=== PATIENT | female | born 1980 | race Caucasian/White ===

== ENCOUNTER 2020-06-13 11:36 | Outpatient (REF) | payer OTHER, SELFPAY ==
[2020-06-14 09:49] LABS: CT PCR NOT DETECTED (Not Detect.); NG PCR NOT DETECTED (Not Detect.)
== END 2020-06-13 11:37 | disposition home or self-care (01) ==
LOC: HO.LNP 11:36
PROVIDERS: PCP Physician Assistant; Referring Provider Physician Assistant; Visit Provider Advanced Practice Midwife
DX: Z01.419 Encounter for gynecological examination (general) (routine) without abnormal findings (principal); Z11.8 Encounter for screening for other infectious and parasitic diseases; Z11.3 Encounter for screening for infections with a predominantly sexual mode of transmission; Z87.891 Personal history of nicotine dependence
CPT/HCPCS: 87491; 87591

== ENCOUNTER 2020-10-04 12:19 | Outpatient (REF) | payer OTHER, SELFPAY ==
--- NOTE | ~2020-10-04 | MM_ITS ---
EXAMINATION: MM DIAGNOSTIC DIGITAL BREAST TOMOSYNTHESIS, BILATERAL CLINICAL INFORMATION: Follow up left breast calcifications COMPARISON: Mammography: 10/03/2019 and studies dating back to 09/05/2018 TECHNIQUE: Digital breast tomosynthesis is performed in both the craniocaudal and mediolateral oblique views along with computer-aided detection (CAD). Synthesized 2D images are generated from the tomosynthesis. Additional spot magnification views of the left breast in craniocaudal and 90 degree mediolateral views performed. FINDINGS: The breasts are heterogeneously dense, which may obscure small masses (ACR BI-RADS breast composition Category c). About the inferior lateral aspect of the right breast there appears to be a circumscribed approximately 1.4 x 1.4 x 1.1 cm density lying approximately 6 cm from the nipple. Recommend ultrasound of this. There appears to be stability of loosely scattered and grouped calcifications about the medial aspect of the left breast. Results are provided to the patient at time of visit by the technologist. MM/MM tomosynthesis diagnostic BI IMPRESSION: Stable appearance of left breast calcifications. Right breast density for which further evaluation with ultrasound is recommended. Patient could not stay for the ultrasound study today and has made an appointment for this in the near future. ASSESSMENT: BI-RADS 0: Incomplete - Need Additional Imaging Evaluation RECOMMENDATION: Right breast ultrasound.
== END 2020-10-04 12:20 | disposition home or self-care (01) ==
LOC: HO.MAMMO 12:19
PROVIDERS: PCP Physician Assistant; Visit Provider Physician Assistant
DX: R92.1 Mammographic calcification found on diagnostic imaging of breast (principal)
CPT/HCPCS: 77062; 77066

== ENCOUNTER 2020-10-14 12:46 | Outpatient (REF) | payer OTHER, SELFPAY ==
--- NOTE | ~2020-10-14 | US_ITS ---
EXAMINATION: US DIAGNOSTIC ULTRASOUND BREAST, RIGHT CLINICAL INFORMATION: Nodular asymmetry lower right breast on recent mammography. COMPARISON: Mammography 10/04/2020, 10/03/2019, 09/05/2018 (baseline). TECHNIQUE: Ultrasound right breast is targeted to the lower and lower outer quadrant. Grayscale imaging and color Doppler are performed without and with harmonics. FINDINGS: There is a benign-appearing complicated cyst 6:00 position 2 cm from nipple measuring 1.9 x 1.4 x 0.5 cm. There are multiple fine internal avascular septations. No solid mass or peripheral or internal color flow. There is increased through-transmission of sound on real-time imaging. There is no solid mass or architectural abnormality. Results are discussed with the patient at time of visit. The complicated cyst corresponds to the finding on recent mammography. It appears probably benign with no associated peripheral or internal color flow. Given the number of septations, the cyst will be reassessed again with ultrasound in 6 months to confirm stability. US/US breast RT limited IMPRESSION: Right breast: Benign-appearing complicated cyst corresponding to finding on recent mammography. ASSESSMENT: BI-RADS 3: Probably Benign RECOMMENDATION: Targeted diagnostic right breast ultrasound in 6 months. This patient's information was entered into a reminder system with a target due date for their next mammogram.
== END 2020-10-14 12:47 | disposition home or self-care (01) ==
LOC: HO.MAMMO 12:46
PROVIDERS: Visit Provider Physician Assistant
DX: N64.89 Other specified disorders of breast (principal)
CPT/HCPCS: 76642

== ENCOUNTER → 2021-02-19 11:30 | Outpatient (BNVA) | payer OTHER, SELFPAY | PROVIDERS: Visit Provider Advanced Practice Midwife ==

== ENCOUNTER → 2021-03-21 15:24 | Outpatient (BNVA) | payer OTHER, SELFPAY | PROVIDERS: Visit Provider Advanced Practice Midwife ==

== ENCOUNTER → 2021-04-08 10:15 | Outpatient (BNVA) | payer OTHER, SELFPAY | PROVIDERS: Visit Provider Advanced Practice Midwife | DX: N92.1 Excessive and frequent menstruation with irregular cycle (principal) | CPT/HCPCS: 81025; 99211 ==

== ENCOUNTER 2021-05-12 12:53 | Outpatient (REF) | payer OTHER, MEDICAID, SELFPAY ==
--- NOTE | ~2021-05-12 | MM_ITS ---
EXAMINATION: MM DIAGNOSTIC DIGITAL BREAST TOMOSYNTHESIS, RIGHT US DIAGNOSTIC ULTRASOUND BREAST, RIGHT CLINICAL INFORMATION: Short interval six-month follow-up probable benign complicated cyst 6:00 right breast. TC score 12%. COMPARISON: Mammography: 10/04/2020 (BI-RADS 0), 10/03/2019, 09/05/2018; targeted right breast ultrasound 10/14/2020. TECHNIQUE: Right breast ultrasound is initially performed targeted to the 4:00 through 10:00 position. Grayscale imaging and color Doppler are performed without and with harmonics. Subsequently, right digital breast tomosynthesis is performed in both the craniocaudal and mediolateral oblique views along with computer-aided detection (CAD). Synthesized 2D images are generated from the tomosynthesis. FINDINGS: Ultrasound, right: The previously noted complicated cyst 6:00 position 2 cm from nipple is no longer demonstrated. Extended scanning failed to reveal finding. There is no cystic or solid mass or architectural abnormality or focal duct ectasia. Digital breast tomosynthesis, right: The breasts are heterogeneously dense, which may obscure small masses (ACR BI-RADS breast composition Category c). Breast tissue composition borders on average fibroglandular. The asymmetric density lower right breast on MLO view noted previously is no longer demonstrated. This is consistent with the absence of the finding on ultrasound. Breast parenchymal pattern is otherwise unremarkable. There is no architectural abnormality or abnormal calcifications. The skin contours are smooth. Results are discussed with the patient at time of visit. MM/MM tomosynthesis diagnostic RT IMPRESSION: Interval resolution complicated cyst lower right breast since prior imaging. ASSESSMENT: BI-RADS 2: Benign RECOMMENDATION: Routine annual mammography screening. This patient's information was entered into a reminder system with a target due date for their next mammogram.
== END 2021-05-12 12:54 | disposition home or self-care (01) ==
LOC: HO.MAMMO 12:53
PROVIDERS: Visit Provider Physician Assistant
DX: R92.2 Inconclusive mammogram (principal)
CPT/HCPCS: 76642; 77061; 77065

== ENCOUNTER 2021-05-26 13:59 | Outpatient (REF) | payer OTHER, MEDICAID, SELFPAY ==
--- NOTE | ~2021-05-26 | XR_ITS ---
EXAMINATION: XR LUMBOSACRAL SPINE CLINICAL INFORMATION: Lumbar radiculopathy. COMPARISON: None. TECHNIQUE: 3 views of the lumbosacral spine. FINDINGS: Grade 1 anterolisthesis of L5 on S1 with chronic bilateral spondylolysis. No loss of vertebral body height. Loss of intervertebral disc height with anterior endplate osteophytes at L1-L2 and L5-S1. No lytic or blastic osseous lesion. No abnormal soft tissue calcification. XR/XR lumbar spine 2-3V IMPRESSION: Grade 1 anterolisthesis of L5 on S1 with chronic bilateral spondylolysis. Degenerative disc disease at L1-L2 and L5-S1.
== END 2021-05-26 14:00 | disposition home or self-care (01) ==
LOC: HO.XRAY 13:59
PROVIDERS: PCP Physician Assistant; Visit Provider Physician Assistant
DX: M54.16 Radiculopathy, lumbar region (principal)
CPT/HCPCS: 72100

== ENCOUNTER 2021-10-06 09:47 | Outpatient (REF) | payer OTHER, MEDICAID, SELFPAY ==
--- NOTE | ~2021-10-06 | MM_ITS ---
EXAMINATION: MM SCREENING DIGITAL BREAST TOMOSYNTHESIS, BILATERAL CLINICAL INFORMATION: Screening. Asymptomatic. The lifetime risk of breast cancer based on the Tyrer-Cuzick Model is 12%. COMPARISON: Mammography: 05/12/2021, 10/04/2020, 10/03/2019 TECHNIQUE: Digital breast tomosynthesis is performed in both the craniocaudal and mediolateral oblique views along with computer-aided detection (CAD). Synthesized 2D images are generated from the tomosynthesis. FINDINGS: The breasts are heterogeneously dense, which may obscure small masses (ACR BI-RADS breast composition Category c). Parenchymal pattern is similar to prior exams. There is no interval mass or architectural abnormality or developing density. There are scattered punctate calcifications again seen with some greater number region oblique central lower left breast. Heavily calcified left axillary node is again seen likely related to old granulomatous changes. Skin contours are smooth. MM/MM tomosynthesis screening BI IMPRESSION: No significant changes from prior studies. ASSESSMENT: BI-RADS 2: Benign RECOMMENDATION: Routine annual mammography screening. This patient's information was entered into a reminder system with a target due date for their next mammogram.
== END 2021-10-06 09:48 | disposition home or self-care (01) ==
LOC: HO.MAMMO 09:47
PROVIDERS: PCP Physician Assistant; Visit Provider Physician Assistant
DX: Z12.31 Encounter for screening mammogram for malignant neoplasm of breast (principal)
CPT/HCPCS: 77063; 77067

== ENCOUNTER 2022-10-12 09:32 | Outpatient (REF) | payer OTHER, SELFPAY ==
--- NOTE | ~2022-10-12 | MM_ITS ---
EXAMINATION: MM SCREENING DIGITAL BREAST TOMOSYNTHESIS, BILATERAL CLINICAL INFORMATION: Screening. Asymptomatic. The lifetime risk of breast cancer based on the Tyrer-Cuzick Model is 12%. COMPARISON: Mammography: 10/06/2021, 05/12/2021, 10/04/2020, 10/03/2019, 04/03/2019, 04/19/2019, 09/05/2018 (baseline). TECHNIQUE: Digital breast tomosynthesis is performed in both the craniocaudal and mediolateral oblique views along with computer-aided detection (CAD). Synthesized 2D images are generated from the tomosynthesis. FINDINGS: The breasts are heterogeneously dense, which may obscure small masses (ACR BI-RADS breast composition Category c). Parenchymal pattern is similar to prior studies and there is no significant mass or developing density or architectural abnormality. Again, there are regional calcifications central inner left breast and scattered on the right. There is a heavily calcified node again seen left axilla likely related to old granulomatous changes. No interval axillary adenopathy. The skin contours are smooth. No significant changes. MM/MM tomosynthesis screening BI IMPRESSION: No mammographic evidence of malignancy. ASSESSMENT: BI-RADS 2: Benign RECOMMENDATION: Routine annual mammography screening. This patient's information was entered into a reminder system with a target due date for their next mammogram.
== END 2022-10-12 09:33 | disposition home or self-care (01) ==
LOC: HO.MAMMO 09:32
PROVIDERS: PCP Physician Assistant; Visit Provider Physician Assistant
DX: Z12.31 Encounter for screening mammogram for malignant neoplasm of breast (principal)
CPT/HCPCS: 77063; 77067

== ENCOUNTER 2022-12-15 10:21 | Outpatient (REF) | payer OTHER, SELFPAY ==
[2022-12-15 11:37] LABS: Hematocrit 43.4 % (37.0-47.0); Hemoglobin 14.6 g/dl (12.0-16.0); Mean Corpuscular HGB Conc 33.6 g/dl (31.0-35.0); Mean Corpuscular Volume 92.1 fL (80.0-98.0); Mean Platelet Volume 10.1 fL (9.4-12.3); Platelet Count 252 X10*3/uL (160-400); Red Blood Count 4.71 X10*6/uL (4.20-5.50); Red Cell Distribution Width 12.6 % (11.0-16.0); White Blood Count 5.1 X10*3/uL (4.8-10.8)
[2022-12-15 12:11] LABS: Alanine Aminotransferase 17 U/L (0-31); Albumin Level 4.5 g/dL (3.5-5.0); Alkaline Phosphatase 64 U/L (39-117); Anion Gap 12 (12-20); Aspartate Amino Transferase 20 U/L (5-31); Bilirubin Total 0.6 mg/dL (0.0-1.0); Blood Urea Nitrogen 9 mg/dL (9-16); Calcium 9.6 mg/dL (8.4-10.2); Carbon Dioxide 27 mmol/L (22-29); Chloride 107 mmol/L (96-108); Cholesterol 165 mg/dL; Estimated Glomerular Filt Rate > 60; Glucose Fasting 86 mg/dL (60-99); HDL Cholesterol 69 mg/dL; LDL Cholesterol Calculated 89 mg/dl; Potassium 3.8 mmol/L (3.3-5.1); Sodium 142 mmol/L (135-145); TSH reflex Free T4 0.76 uIU/mL (0.32-4.0); Total Protein 7.4 g/dL (6.5-8.0); Triglycerides 36 mg/dL
[2022-12-17 21:43] LABS: Follicle Stimulating Hormone 7.2 mIU/mL
[2022-12-25 20:08] LABS: Estrogen 308.4 pg/mL
== END 2022-12-15 10:22 | disposition home or self-care (01) ==
LOC: HO.LAB 10:21
PROVIDERS: PCP Physician Assistant; Visit Provider Physician Assistant
DX: R45.86 Emotional lability (principal); Z13.29 Encounter for screening for other suspected endocrine disorder; Z13.220 Encounter for screening for lipoid disorders; Z13.1 Encounter for screening for diabetes mellitus
CPT/HCPCS: 36415; 80053; 80061; 82672; 83001; 84443; 85027

== ENCOUNTER 2023-03-04 09:58 | Outpatient (AMB) | payer OTHER, SELFPAY ==
[2023-03-04 10:00] VITALS: BP 122/68; PULSE 72; O2SAT 99; BMI 22.0
--- NOTE | 2023-03-04 10:00 | MHC.PC.OV ---
Vital Signs 03/04/23 10:00 Height 5 ft 7 in Weight 140 lb 4 oz BMI 22.0 BP 122/68 Blood Pressure Location Rt brachial Position Sitting Pulse 72 Pulse Source Pulse Oximeter Pulse Oximetry (%) 99 Intake Visit Reasons: Discuss patient's mental health Intake Note: pt is here for discuss mental health Bridge Expert Required: No Accompanied by: Self / Same As Patient Allergies No Known Allergies Allergy (Verified 03/04/23 10:10) Medication List - Last Reconciled 03/04/23 by Agapito Mar PA-C diazepam 5 mg PO BEDTIME 15 days valacyclovir (Valtrex) 1,000 mg PO BID PRN 7 days Tobacco use date assessed: 03/04/23 Dental Screening Dental Screen Date: 03/04/23 Did you have a dental visit in the last 12 months?: Yes Did you have a dental problem in the last 6 months where you did not have access to dental care?: No Was dental information given to patient?: Patient has dentist HPI Discuss patient's mental health HPI Details Patient is a 42-year-old female here today for follow-up on her mental health. Patient does have a long history of generalized anxiety disorder to which he uses p.r.n. diazepam for high point of anxiety. She reports he has reduced her alcohol intake and feels somewhat better. She continues to be physically active doing yoga. She has realized that she has daily underlying anxiety even without the use alcohol and would like to start treatment. She is speaking with a mental therapist she enjoys. She reports her sister is on Wellbutrin to which she gets good effect from. She would like to try Wellbutrin. 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 1. Little interest or pleasure in doing things: several days 2. Feeling down, depressed, or hopeless: several days 3. Trouble falling or staying asleep, or sleeping too much: more than half the days 4. Feeling tired or having little energy: several days 5. Poor appetite or overeating: not at all 6. Feeling bad about yourself - or that you are a failure or have let yourself or your family down: several days 7. Trouble concentrating on things, such as reading the newspaper or watching television: not at all 8. Moving or speaking so slowly that other people could have noticed. Or the opposite - being so fidgety or restless that you have been moving around a lot more than usual: several days 9. Thoughts that you would be better off or of hurting yourself in some way: not at all Total score: 7 Depression Screening Interpretation: Positive 23537 - PHQ-9 Billing: Yes Source: Developed by Drs. Jhonny Meyer, Eleanor Mcgarry, Pavel Cat and colleagues, with an educational keri from [employer]. Thrive Questionnaire Date Thrive assessed: 03/04/23 I am a: Patient What is your living situation today?: I have a steady place to live Within the past 12 months, did the food you bought not last and you didn't have the money to get more?: Never true Within the past 12 months, did you worry whether your food would run out before you got money to buy more?: Never true Do you have trouble paying for medicines?: No Do you have trouble getting transportation to medical appointments?: No Do you have trouble paying your heating and electricity bill?: No Do you have trouble taking care of your child, family member or friend?: No Do you have trouble with day-to-day activities such as bathing, preparing meals, shopping, managing finances, etc.?: No Are you currently unemployed and looking for a job?: No Are you interested in more education?: No Please select the resources that you would like help with: None Currently or been in a relationship where the following occur: no concerns reported RAYMOND-7 AMB Questionnaire RAYMOND-7 Date RAYMOND - 7 assessed: 03/04/23 Feeling nervous, anxious, or on edge: 2 = More than half the days Not being able to stop or control worryin = More than half the days Worrying too much about different things: 2 = More than half the days Trouble relaxin = Several days Being so restless that it is hard to sit still: 1 = Several days Becoming easily annoyed or irritable: 1 = Several days Feeling afraid as if something awful might happen: 0 = Not at all Total RAYMOND-7 score (0-4 normal; 5-9 mild; 10-14 moderate; 15-21 severe): 9 Source: Developed by Drs. Jhonny Meyer, Eleanor Mcgarry, Pavel Cat and colleagues, with an educational keri from [employer]. RAYMOND-7 Assessment Billing RAYMOND-7 Assessment Tool: RAYMOND-7 Assessment 93142 Review of Systems Const Denies headache(s) Eyes Denies loss of vision ENT Denies vertigo, Denies dizziness, Denies headache(s) and Denies sore throat Card Denies chest pain, Denies leg edema and Denies lightheadedness Resp Denies cough, Denies hemoptysis and Denies wheezing GI Denies abdominal pain, Denies melena, Denies constipation, Denies diarrhea and Denies vomiting Denies urinary frequency, Denies dysuria and Denies urinary urgency Musc Denies arthralgias, Denies joint swelling, Denies numbness and Denies tingling Neuro Denies Abnormal speech present, Denies behavioral changes, Denies vertigo, Denies dizziness, Denies headache(s), Denies loss of vision, Denies memory loss, Denies numbness and Denies tingling Psych Reports anxiety, Denies behavioral changes, Reports depression, Reports irritability, Denies memory loss, Reports mood swings and Denies panic attacks Kwasi/Lymph Denies easy bleeding and Denies easy bruising Aller/Immun Denies wheezing Physical exam (Primary Care) Vital Signs: Last Vital Signs Pulse 72 03/04/23 10:00 BP 122/68 03/04/23 10:00 Pulse Ox 99 03/04/23 10:00 BMI result Body Mass Index 22.0 Tobacco/Smoking Status: Tobacco use Status Tobacco use date assessed 03/04/23 03/04/23 10:05 Patient Tobacco Use Status Former Tobacco user 03/04/23 10:05 e-Cigarette/Vaping Use Never Used 03/04/23 10:05 PHQ-9: PHQ-9 Score PHQ-9: Total score 7 03/04/23 10:09 Depression Screening Interpretation: Positive Thrive Assessment: Date of Thrive Assessment Date Thrive assessed 03/04/23 03/04/23 10:09 Currently or been in a relationship where the following occur: no concerns reported Const General: healthy appearing, no acute distress, alert and awake Nutritional Appearance: well nourished Orientation/consciousness: oriented to person, oriented to place and oriented to time HENMT Ears: TM's normal bilaterally General nose exam: Normal nasal mucous membranes and turbinates present Eyes Conjunctivae: conjunctivae normal Sclerae: sclerae normal Pupils: Equal, round and reactive pupils present Neck Neck: Yes no lymphadenopathy and Yes no JVD Thyroid: Thyroid normal Carotids: no bruits Resp Effort & Inspection: normal respiratory effort and not tachypneic Auscultation: no crackles, no rales, no rhonchi and no wheezes Cardio Rate: regular rate Rhythm: regular rhythm Heart sounds: no murmurs and normal S1 and S2 GI Palpation (GI): Soft to palpation, nontender, no hepatomegaly and no splenomegaly Auscultation: normal bowel sounds Skin General skin exam: no rashes or lesions noted and dry skin Neuro General: oriented to person, oriented to place and oriented to time Cranial nerves: Yes Equal, round and reactive pupils present Speech: No Abnormal speech present Gait exam (Neuro): Normal gait present Motor exam (neuro): no tremor noted Extrem Right upper extremity: full ROM Left upper extremity: full ROM Right lower extremity: full ROM; no edema Left lower extremity: full ROM; no edema Psych Mental Status: mental status grossly normal Speech and movement: Normal speech and movement present Affect: normal affect Attitude: cooperative Thought process: Normal thought process present Assessment and Plan Assessment & Plan (1) MDD (major depressive disorder), recurrent episode, mild: Code(s): F33.0 - Major depressive disorder, recurrent, mild Plan: Patient reports she has been experiencing a bit more depression as of late. She is speaking with a mental therapist whom she enjoys.. Has not drinking and has been feeling more emotional. She is somewhat interested in starting medication. Reports her sister has found benefit from Wellbutrin. She would like to try acupuncture for a few weeks before starting medication. (2) ARYMOND (generalized anxiety disorder): Code(s): F41.1 - Generalized anxiety disorder Plan: Patient's RAYMOND-7 positive for moderate anxiety which has been existing condition for her. She does use diazepam on a very limited basis for high point of anxiety. She reports she has quit drinking and now is seeing clearly . Medications: New bupropion HCl (Wellbutrin SR) 100 mg PO DAILY 30 days 30 tabs 1RF F33.0 - Major depressive disorder, recurrent, mild Refilled diazepam 5 mg PO BEDTIME 15 days 15 tabs 0RF F41.1 - Generalized anxiety disorder Coding Level of Care Code Est Pt Level 3 (44398) Diagnoses MDD (major depressive disorder), recurrent episode, mild F33.0 RAYMOND (generalized anxiety disorder) F41.1 Additional Codes RAYMOND-7 Assessment Billing - RAYMOND-7 Assessment Tool: RAYMOND-7 Assessment [id number] ([id number])
== END 2023-03-04 10:33 | disposition home or self-care (01) ==
PROVIDERS: PCP Physician Assistant; Visit Provider Physician Assistant
DX: F33.0 Major depressive disorder, recurrent, mild (principal); F41.1 Generalized anxiety disorder
CPT/HCPCS: 99213

== ENCOUNTER 2023-05-10 11:18 | Outpatient (AMB) | payer OTHER, SELFPAY ==
--- NOTE | 2023-05-10 11:36 | MHC.PC.OV ---
Vital Signs 05/10/23 11:42 Height 5 ft 7 in Weight 142 lb 8 oz BMI 22.3 BP 114/82 Blood Pressure Location Lt brachial Position Sitting Pulse 90 Pulse Source Pulse Oximeter Pulse Oximetry (%) 99 Oxygen Delivery Method Room Air Intake Visit Reasons: PE Allergies No Known Allergies Allergy (Verified 05/10/23 11:59) Medication List - Last Reconciled 05/10/23 by Agapito Mar PA-C bupropion HCl (Wellbutrin SR) 100 mg PO DAILY 30 days diazepam 5 mg PO BEDTIME 15 days valacyclovir (Valtrex) 1,000 mg PO BID PRN 7 days Tobacco use date assessed: 03/04/23 HPI PE HPI Details Patient is a 42-year-old female here today for routine annual physical.? Patient has a past medical history significant for generalized anxiety disorder. ..Generalized anxiety disorder and MDD:? . Patient has been managing with very limited p.r.n. use of diazepam for severe panic attacks.? Otherwise she has been managing on her own.? She reports she has reduced her alcohol consumption which has helped her anxiety. She is speaking with a mental health therapist which she feels is helpful for mental health. She has not started the Wellbutrin though has it on hand in case she needs it. She has drastically reduced her alcohol consumption. Vaccines:? Up-to-date with tetanus, Considering COVID Vaccine. 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 .. 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 1. Little interest or pleasure in doing things: not at all 2. Feeling down, depressed, or hopeless: not at all 3. Trouble falling or staying asleep, or sleeping too much: not at all 4. Feeling tired or having little energy: not at all 5. Poor appetite or overeating: not at all 6. Feeling bad about yourself - or that you are a failure or have let yourself or your family down: not at all 7. Trouble concentrating on things, such as reading the newspaper or watching television: not at all 8. Moving or speaking so slowly that other people could have noticed. Or the opposite - being so fidgety or restless that you have been moving around a lot more than usual: not at all 9. Thoughts that you would be better off or of hurting yourself in some way: not at all Total score: 0 Depression Screening Interpretation: Negative Depression Screening Done: Yes 17336 - PHQ-9 Billing: Yes Source: Developed by Drs. Jhonny Meyer, Eleanor Mcgarry, Pavel Cat and colleagues, with an educational keri from [employer]. Thrive Questionnaire Date Thrive assessed: 03/04/23 AUDIT C Alcohol Use Questionnaire (AUDIT-C) 1. How often do you have a drink containing alcohol?: Monthly or less 2. How many drinks containing alcohol do you have on a typical day when you are drinking?: 1 or 2 3. How often do you have six or more drinks on one occasion?: Never Total Score: 1 RAYMOND-7 AMB Questionnaire RAYMOND-7 Date RAYMOND - 7 assessed: 03/04/23 Source: Developed by Drs. Jhonny Meyer, Eleanor Mcgarry, Pavel Cat and colleagues, with an educational keri from [employer]. Review of Systems Const Denies excessive sweating, Denies fatigue and Denies headache(s) Eyes Denies loss of vision ENT Denies vertigo, Denies dizziness, Denies headache(s) and Denies sore throat Card Denies chest pain, Denies leg edema and Denies lightheadedness Resp Denies cough, Denies hemoptysis and Denies wheezing GI Denies abdominal pain, Denies melena, Denies constipation, Denies diarrhea and Denies vomiting Denies urinary frequency, Denies dysuria and Denies urinary urgency Musc Denies arthralgias, Denies joint swelling, Denies numbness and Denies tingling Skin/Breast Denies rash and Denies skin ulcer Neuro Denies Abnormal speech present, Denies behavioral changes, Denies vertigo, Denies dizziness, Denies headache(s), Denies loss of vision, Denies memory loss, Denies numbness and Denies tingling Psych Denies anxiety, Denies behavioral changes, Denies depression, Denies memory loss and Denies panic attacks Endo Denies excessive sweating, Denies fatigue, Denies flushing, Denies polydipsia and Denies polyuria Kwasi/Lymph Denies easy bleeding and Denies easy bruising Aller/Immun Denies wheezing Physical exam (Primary Care) Vital Signs: Last Vital Signs Pulse 90 05/10/23 11:42 BP 114/82 05/10/23 11:42 Pulse Ox 99 05/10/23 11:42 Oxygen Delivery Method Room Air 05/10/23 11:42 BMI result Body Mass Index 22.3 Tobacco/Smoking Status: Tobacco use Status Tobacco use date assessed 03/04/23 05/10/23 11:36 Patient Tobacco Use Status Former Tobacco user 05/10/23 12:05 e-Cigarette/Vaping Use Never Used 05/10/23 12:05 PHQ-9: PHQ-9 Score PHQ-9: Total score 0 05/10/23 12:00 Depression Screening Interpretation: Negative Thrive Assessment: Date of Thrive Assessment Date Thrive assessed 03/04/23 05/10/23 11:36 Const General: healthy appearing, no acute distress, alert and awake Nutritional Appearance: well nourished Orientation/consciousness: oriented to person, oriented to place and oriented to time HENMT Head: Yes normocephalic Ears: TM's normal bilaterally General nose exam: Normal nasal mucous membranes and turbinates present Face and sinus: No sinus tenderness Mouth: Normal oral and palatal mucosa present and tongue normal Teeth and gingiva: dentition normal and gingiva normal Throat: Yes posterior oropharynx normal, Yes tonsils normal and Yes uvula midline Eyes Conjunctivae: conjunctivae normal Sclerae: sclerae normal Pupils: Equal, round and reactive pupils present EOM: EOMs intact bilaterally Direct Ophthalmoscopy: No no photophobia Neck Neck: Yes no lymphadenopathy and Yes no JVD Thyroid: Thyroid normal Carotids: no bruits Chest Chest palpation & inspection: no tenderness Resp Effort & Inspection: normal respiratory effort and not tachypneic Auscultation: no crackles, no rales, no rhonchi and no wheezes Cardio Jugular venous distension: no JVD Rate: regular rate Rhythm: regular rhythm Heart sounds: no murmurs and normal S1 and S2 Bruits: no carotid bruits Peripheral pulses: Peripheral pulses 2+ throughout GI Inspection: Yes normal to inspection, No abdominal wall ecchymosis and No visible herniation Palpation (GI): Soft to palpation, nontender, no hepatomegaly and no splenomegaly Auscultation: normal bowel sounds General: Yes no CVA tenderness Back/Spine/Pelvis Back: no CVA tenderness and No back tenderness Cervical Spine: cervical ROM normal Thoracic/Lumbar Spine: thoracic and lumbar spine normal to inspection, straight leg raise negative bilaterally, No thoraco-lumbar ROM limited and No lumbar spinal tenderness Skin General skin exam: no rashes or lesions noted and dry skin Lesions: no lesions Rashes: no rashes Wounds: no wounds Neuro General: oriented to person, oriented to place and oriented to time Cranial nerves: Yes Equal, round and reactive pupils present Cognition (Neuro): normal cognition Speech: No Abnormal speech present Gait exam (Neuro): Normal gait present Motor exam (neuro): no tremor noted Extrem Right upper extremity: full ROM Left upper extremity: full ROM Right lower extremity: full ROM; no edema Left lower extremity: full ROM; no edema Psych Appearance: grossly normal Mental Status: mental status grossly normal Speech and movement: Normal speech and movement present Affect: normal affect Attitude: cooperative Thought process: Normal thought process present Assessment and Plan Assessment & Plan (1) Annual physical exam: Code(s): Z00.00 - Encounter for general adult medical examination without abnormal findings (2) Screening for diabetes mellitus (DM): Code(s): Z13.1 - Encounter for screening for diabetes mellitus (3) MDD (major depressive disorder), recurrent episode, mild: Code(s): F33.0 - Major depressive disorder, recurrent, mild Plan: She reports her depression has been much better as of late. Does pick with a mental health therapist which she feels is helpful. Has been trying to make better life choices in reduce her alcohol intake as well. Has Wellbutrin prescribed tear though has not started the medication as she feels she did not need it (4) RAYMOND (generalized anxiety disorder): Code(s): F41.1 - Generalized anxiety disorder Plan: Patient's anxiety again has been much better as of lately. Again speaking with mental health therapy which has been helpful. Orders: Orders Comprehensive [place]. Panel Fast Today Z13.1 - Encounter for screening for diabetes mellitus Medications: Refilled valacyclovir (Valtrex) 1,000 mg PO BID 7 days PRN 14 tabs 0RF outbreak B00.9 - Herpesviral infection, unspecified On Hold bupropion HCl (Wellbutrin SR) Hold Comment: Doctor's Order 100 mg PO DAILY 30 days 30 tabs 3RF F33.0 - Major depressive disorder, recurrent, mild Coding Level of Care Code Est Pt Prev Care 40-64y(51114) Diagnoses Annual physical exam Z00.00 Screening for diabetes mellitus (DM) Z13.1 MDD (major depressive disorder), recurrent episode, mild F33.0 RAYMOND (generalized anxiety disorder) F41.1
[2023-05-10 11:42] VITALS: BP 114/82; PULSE 90; O2SAT 99; BMI 22.3
== END 2023-05-10 12:18 | disposition home or self-care (01) ==
PROVIDERS: PCP Physician Assistant; Visit Provider Physician Assistant
DX: Z00.00 Encounter for general adult medical examination without abnormal findings (principal); Z13.1 Encounter for screening for diabetes mellitus; F33.0 Major depressive disorder, recurrent, mild; F41.1 Generalized anxiety disorder
CPT/HCPCS: 99396

== ENCOUNTER 2023-09-01 08:54 | Outpatient (AMB) | payer OTHER, SELFPAY ==
[2023-09-01 09:17] VITALS: BP 100/72; PULSE 82; O2SAT 99; BMI 22.3
--- NOTE | 2023-09-01 09:17 | A.OFFPC_ITS ---
Vital Signs 3 09/01/23 09:17 Height 5 ft 7 in Weight 142 lb 6 oz BMI 22.3 BP 100/72 Blood Pressure Location Lt brachial Position Sitting Pulse 82 Pulse Source Pulse Oximeter Pulse Oximetry (%) 99 Oxygen Delivery Method Room Air Intake Visit Reasons: Med review Coal Passer Required: No Accompanied by: Self / Same As Patient Allergies No Known Allergies Allergy (Verified 09/01/23 09:27) Medication List - Last Reconciled 09/01/23 by Agapito Mar PA-C bupropion HCl (Wellbutrin SR) 150 mg PO DAILY diazepam 5 mg PO BEDTIME 15 days valacyclovir (Valtrex) 1,000 mg PO BID PRN 7 days Tobacco use date assessed: 09/01/23 Dental Screening Dental Screen Date: 09/01/23 Did you have a dental visit in the last 12 months?: No Did you have a dental problem in the last 6 months where you did not have access to dental care?: No Was dental information given to patient?: Patient has dentist HPI Med review 2 HPI0 Details Patient is a 43-year-old female here today for a follow-up visit.? Patient has a past medical history significant for generalized anxiety disorder. Concern--> reports bilateral shoulder pain over the last several years. No major trauma reported to her shoulders. She would like to have her shoulders checked out. She also has a skin lesion over her left flank that often bothers her and gets caught on clothing. She would like to have this removed. ..Generalized anxiety disorder and MDD:? She has started Wellbutrin 150 mg with significant improvement in her anxiety and depression. She is also drastically reduced her alcohol intake and now going to more fitness classes. She is very pleased with the results of Wellbutrin and would like to stay on this long-term. 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 1. Little interest or pleasure in doing things: not at all 2. Feeling down, depressed, or hopeless: not at all 3. Trouble falling or staying asleep, or sleeping too much: not at all 4. Feeling tired or having little energy: not at all 5. Poor appetite or overeating: not at all 6. Feeling bad about yourself - or that you are a failure or have let yourself or your family down: not at all 7. Trouble concentrating on things, such as reading the newspaper or watching television: not at all 8. Moving or speaking so slowly that other people could have noticed. Or the opposite - being so fidgety or restless that you have been moving around a lot more than usual: not at all 9. Thoughts that you would be better off or of hurting yourself in some way: not at all Total score: 0 Depression Screening Interpretation: Negative Depression Screening Done: Yes 92338 - PHQ-9 Billing: Yes Source: Developed by Drs. Jhonny Meyer, Eleanor Mcgarry, Pavel Cat and colleagues, with an educational keri from [employer]. Thrive Questionnaire Date Thrive assessed: 09/01/23 I am a: Patient What is your living situation today?: I have a steady place to live Within the past 12 months, did the food you bought not last and you didn't have the money to get more?: Never true Within the past 12 months, did you worry whether your food would run out before you got money to buy more?: Never true Do you have trouble paying for medicines?: No Do you have trouble getting transportation to medical appointments?: No Do you have trouble paying your heating and electricity bill?: No Do you have trouble taking care of your child, family member or friend?: No Do you have trouble with day-to-day activities such as bathing, preparing meals, shopping, managing finances, etc.?: No Are you currently unemployed and looking for a job?: No Are you interested in more education?: No Please select the resources that you would like help with: None Currently or been in a relationship where the following occur: no concerns reported THRIVE Score: 0 AUDIT C Alcohol Use Questionnaire (AUDIT-C) 1. How often do you have a drink containing alcohol?: Monthly or less 2. How many drinks containing alcohol do you have on a typical day when you are drinking?: 1 or 2 3. How often do you have six or more drinks on one occasion?: Never Total Score: 1 RAYMOND-7 AMB Questionnaire RAYMOND-7 Date RAYMOND - 7 assessed: 09/01/23 Feeling nervous, anxious, or on edge: 0 = Not at all Not being able to stop or control worryin = Not at all Worrying too much about different things: 0 = Not at all Trouble relaxin = Not at all Being so restless that it is hard to sit still: 0 = Not at all Becoming easily annoyed or irritable: 0 = Not at all Feeling afraid as if something awful might happen: 0 = Not at all Total RAYMOND-7 score (0-4 normal; 5-9 mild; 10-14 moderate; 15-21 severe): 0 Source: Developed by Drs. Jhonny Meyer, Eleanor Mcgarry, Pavel Cat and colleagues, with an educational keri from [employer]. RAYMOND-7 Assessment Billing RAYMOND-7 Assessment Tool: RAYMOND-7 Assessment [id number] Review of Systems Const Denies headache(s) Eyes Denies loss of vision ENT Denies vertigo, Denies dizziness, Denies headache(s) and Denies sore throat Card Denies chest pain, Denies leg edema and Denies lightheadedness Resp Denies cough, Denies hemoptysis and Denies wheezing GI Denies abdominal pain, Denies melena, Denies constipation, Denies diarrhea and Denies vomiting Denies urinary frequency, Denies dysuria and Denies urinary urgency Musc Denies arthralgias, Denies joint swelling, Denies numbness and Denies tingling Neuro Denies Abnormal speech present, Denies behavioral changes, Denies vertigo, Denies dizziness, Denies headache(s), Denies loss of vision, Denies memory loss, Denies numbness and Denies tingling Psych Denies anxiety, Denies behavioral changes, Denies depression, Denies memory loss and Denies panic attacks Kwasi/Lymph Denies easy bleeding and Denies easy bruising Aller/Immun Denies wheezing Physical exam (Primary Care) Vital Signs: Last Vital Signs Pulse 82 09/01/23 09:17 BP 100/72 09/01/23 09:17 Pulse Ox 99 09/01/23 09:17 Oxygen Delivery Method Room Air 09/01/23 09:17 BMI result Body Mass Index 22.3 Tobacco/Smoking Status: Tobacco use Status Tobacco use date assessed 09/01/23 09/01/23 09:23 Patient Tobacco Use Status Former Tobacco user 09/01/23 09:19 e-Cigarette/Vaping Use Never Used 09/01/23 09:19 PHQ-9: PHQ-9 Score PHQ-9: Total score 0 09/01/23 09:23 Depression Screening Interpretation: Negative Thrive Assessment: Date of Thrive Assessment Date Thrive assessed 09/01/23 09/01/23 09:23 Currently or been in a relationship where the following occur: no concerns reported Const General: healthy appearing, no acute distress, alert and awake Nutritional Appearance: well nourished Orientation/consciousness: oriented to person, oriented to place and oriented to time HENMT Ears: TM's normal bilaterally General nose exam: Normal nasal mucous membranes and turbinates present Eyes Conjunctivae: conjunctivae normal Sclerae: sclerae normal Pupils: Equal, round and reactive pupils present Neck Neck: Yes no lymphadenopathy and Yes no JVD Thyroid: Thyroid normal Carotids: no bruits Chest Chest/axillae images: 2 1. RAISED CIRCULAR ROUGH TEXTURED SKIN LESION OVER LEFT FLANK Resp Effort & Inspection: normal respiratory effort and not tachypneic Auscultation: no crackles, no rales, no rhonchi and no wheezes Cardio Rate: regular rate Rhythm: regular rhythm Heart sounds: no murmurs and normal S1 and S2 GI Palpation (GI): Soft to palpation, nontender, no hepatomegaly and no splenomegaly Auscultation: normal bowel sounds Skin General skin exam: no rashes or lesions noted and dry skin Neuro General: oriented to person, oriented to place and oriented to time Cranial nerves: Yes Equal, round and reactive pupils present Speech: No Abnormal speech present Gait exam (Neuro): Normal gait present Motor exam (neuro): no tremor noted Extrem Right upper extremity: full ROM Left upper extremity: full ROM Right lower extremity: full ROM; no edema Left lower extremity: full ROM; no edema Psych Mental Status: mental status grossly normal Speech and movement: Normal speech and movement present Affect: normal affect Attitude: cooperative Thought process: Normal thought process present Assessment and Plan Assessment & Plan (1) RAYMOND (generalized anxiety disorder): Code(s): F41.1 - Generalized anxiety disorder Plan: She reports her anxiety depression has much improved with the addition of Wellbutrin 150 mg. She would like to stay on this dose. She has also drastically reduced her alcohol intake And has joined more fitness classes (2) Tendinopathy of both shoulders: Code(s): M67.911 - Unspecified disorder of synovium and tendon, right shoulder; M67.912 - Unspecified disorder of synovium and tendon, left shoulder Plan: Reports having bilateral shoulder pain over the last several years. She reports the often arm pain after workouts. No major trauma reported to her upper extremities were shoulders.. Has tried anti-inflammatories. She is interested in having her shoulders checked out. Would likely benefit from physical therapy (3) Actinic keratosis: Code(s): L57.0 - Actinic keratosis Plan: Has skin lesion with the appearance of an actinic keratosis. Has had several attempts on removal though skin lesion returns. She would like to see general surgeon for surgical removal of this skin lesion. Orders: Orders 2 XR shoulder LT min 2V Today M67.911 - Unspecified disorder of synovium and tendon, right shoulder, M67.912 - Unspecified disorder of synovium and tendon, left shoulder XR shoulder RT min 2V Today M67.911 - Unspecified disorder of synovium and tendon, right shoulder, M67.912 - Unspecified disorder of synovium and tendon, left shoulder PT Evaluation and Treatment Today M67.911 - Unspecified disorder of synovium and tendon, right shoulder, M67.912 - Unspecified disorder of synovium and tendon, left shoulder Referrals 2 General Surgery Referral L57.0 - Actinic keratosis Coding Level of Care Code Est Pt Level 4 (93418) Diagnoses RAYMOND (generalized anxiety disorder) F41.1 Tendinopathy of both shoulders M67.911; M67.912 Actinic keratosis L57.0 Additional Codes RAYMOND-7 Assessment Billing - RAYMOND-7 Assessment Tool: RAYMOND-7 Assessment 71177 ([id number])
== END 2023-09-01 09:44 | disposition home or self-care (01) ==
PROVIDERS: PCP Physician Assistant; Visit Provider Physician Assistant
DX: M67.911 Unspecified disorder of synovium and tendon, right shoulder (principal); M67.912 Unspecified disorder of synovium and tendon, left shoulder; L57.0 Actinic keratosis; F41.1 Generalized anxiety disorder
CPT/HCPCS: 99214

== ENCOUNTER 2023-09-27 10:22 | Outpatient (REF) | payer OTHER, SELFPAY | END 2023-09-27 10:23 | disposition home or self-care (01) | LOC: HO.LNP 10:22 | PROVIDERS: PCP Physician Assistant; Referring Provider Physician Assistant; Visit Provider Surgery | DX: L98.9 Disorder of the skin and subcutaneous tissue, unspecified (principal) | CPT/HCPCS: 11102; 88304; 88305; 99202 ==

== ENCOUNTER 2023-09-27 10:22 | Outpatient (AMB) | payer OTHER, SELFPAY ==
--- NOTE | 2023-09-27 10:24 | MHC.OFFVIS ---
Intake Vital Signs 09/27/23 10:32 Height 5 ft 7 in Weight 321 lb 13.998 oz BMI 50.4 BP 145/86 H Blood Pressure Location Rt brachial Position Sitting Pulse 83 Intake Visit Reasons: Skin lesion~ Lt flank Intake Note: Patient referred by PCP Agapito Mar for lesion on Lt flank. First noticed 10yrs ago. Patient c/o: irritated with clothing. Denies bleeding, itch. No hx of skin ca. Instructor Of Spanish Required: No Accompanied by: Self / Same As Patient Allergies No Known Allergies Allergy (Verified 09/27/23 10:28) Medication List - Last Reconciled 09/27/23 by Devang Lorenzo MD bupropion HCl (Wellbutrin SR) 150 mg PO DAILY diazepam 5 mg PO BEDTIME 15 days valacyclovir (Valtrex) 1,000 mg PO BID PRN 7 days HPI HPI Comments History of Present Illness Details Patient presents with a recurrent recurrent left flank skin lesion. She originally had this excised by her medical doctor. It was then excised by a asset card clerk. It has recurred. She says it is benign but it has become more symptomatic and she wishes to have it removed. 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 Office Procedures Excision Details: Risks, benefits, alternatives of excision of left recurrent skin lesion 2 x 1 cm was reviewed the patient included but not limited to bleeding, infection, recurrence, numbness, pain, scarring and the patient wished to proceed. All questions answered. After appropriate positioning, patient underwent 1% lidocaine and Betadine prep and uneventful tangential shave biopsy excision of this 2 x 1 cm superficial skin lesion. Specimen sent to pathology. Wound base was cauterized with silver nitrate followed by bacitracin and sterile dressing. Patient tolerated procedure well [id number]/arms/legs 1.1-2cm Procedure code (CPT) selection complete Office Meds lidocaine 1 %-epinephrine 1:100,000 injection solution Performing Provider: Devang Lorenzo MD Performing Location: [facility] [place] General Surgeons Administered by: Devang Lorenzo MD on 09/27/23 11:26 Dose Route Admin Location Dispensed Lot Number Expiration Date [facility] [place] [employer] Sales Representative 10 mL Infiltration 10 mL Assessment & Plan Assessment & Plan (1) Skin lesion: Code(s): L98.9 - Disorder of the skin and subcutaneous tissue, unspecified Plan: Patient has been given local instructions, including avoiding strenuous activities, bacitracin each day, ice periodically, Tylenol p.r.n.. All questions answered. Patient will see me as directed or p.r.n. Orders: Orders AMB Excision Today L98.9 - Disorder of the skin and subcutaneous tissue, unspecified Coding Level of Care Code New Pt Level 5 (39261) Diagnoses Skin lesion L98.9 CPT Codes Trunk/Arms/Legs - CPT: 73111-mefql/arms/legs 1.1-2cm ([id number])
[2023-09-27 10:32] VITALS: BP 145/86; PULSE 83; BMI 50.4
== END 2023-09-27 10:50 | disposition home or self-care (01) ==
PROVIDERS: PCP Physician Assistant; Referring Provider Physician Assistant; Visit Provider Surgery
DX: L98.9 Disorder of the skin and subcutaneous tissue, unspecified (principal)
CPT/HCPCS: 11102; 99204

== ENCOUNTER 2023-10-04 09:18 | Outpatient (AMB) | payer OTHER, SELFPAY ==
[2023-10-04 09:24] VITALS: BP 141/83; PULSE 77; BMI 22.4
--- NOTE | 2023-10-04 09:24 | MHC.OFFVIS ---
Intake Vital Signs 10/04/23 09:24 Height 5 ft 7 in Weight 143 lb BMI 22.4 BP 141/83 H Blood Pressure Location Rt brachial Position Sitting Pulse 77 Intake Visit Reasons: S/p Skin lesion~ Lt flank - in office Intake Note: Patient here s/p exc on Lt flank. Reports incision healing well. Patient c/o:redness. 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 She has no wound issues or complaints. 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 Assessment & Plan Assessment & Plan (1) Skin lesion: Code(s): L98.9 - Disorder of the skin and subcutaneous tissue, unspecified Plan Patient has been given local instructions, and will follow-up p.r.n.. All questions answered. Coding Level of Care Code Global (07898) Diagnoses Skin lesion L98.9
== END 2023-10-04 09:42 | disposition home or self-care (01) ==
PROVIDERS: PCP Physician Assistant; Visit Provider Surgery
DX: L98.9 Disorder of the skin and subcutaneous tissue, unspecified (principal)
CPT/HCPCS: 99212

== ENCOUNTER → 2023-10-04 09:18 | Outpatient (BNVA) | payer OTHER, SELFPAY | PROVIDERS: PCP Physician Assistant; Visit Provider Surgery | DX: Z09 Encounter for follow-up examination after completed treatment for conditions other than malignant neoplasm (principal); Z87.2 Personal history of diseases of the skin and subcutaneous tissue | CPT/HCPCS: 99212 ==

== ENCOUNTER 2023-10-18 09:14 | Outpatient (REF) | payer OTHER, SELFPAY ==
--- NOTE | ~2023-10-18 | MM_ITS ---
EXAMINATION: MM SCREENING DIGITAL BREAST TOMOSYNTHESIS, BILATERAL CLINICAL INFORMATION: Screening. Asymptomatic. COMPARISON: Mammography: 10/12/2022, 10/06/2021, and exams dating back to 2019. TECHNIQUE: Digital breast tomosynthesis is performed in both the craniocaudal and mediolateral oblique views along with computer-aided detection (CAD). Synthesized 2D images are generated from the tomosynthesis. Added left CC view for improved anterior compression. FINDINGS: The breasts are heterogeneously dense, which may obscure small masses (ACR BI-RADS breast composition Category c). Left axillary lymph node again noted to be either pigmented or calcified, likely from tattoos. This is unchanged. Again, there are regional calcifications central inner left breast and scattered on the right. These appear benign and stable. No new or suspicious calcifications. No developing masses, regions of architectural distortion, skin abnormalities, or right axillary abnormalities. Parenchymal pattern is stable from prior exams. MM/MM tomosynthesis screening BI IMPRESSION: No mammographic evidence of malignancy. Stable benign findings. ASSESSMENT: BI-RADS BI-RADS 2 - Benign Findings RECOMMENDATION: Routine annual mammography screening. 1 year F/U This examination should not preclude the clinical evaluation of a suspicious palpable abnormality. This patient's information was entered into a reminder system with a target due date for their next mammogram.
== END 2023-10-18 09:15 | disposition home or self-care (01) ==
LOC: HO.MAMMO 09:14
PROVIDERS: PCP Physician Assistant; Visit Provider Physician Assistant
DX: Z12.31 Encounter for screening mammogram for malignant neoplasm of breast (principal)
CPT/HCPCS: 77063; 77067

== ENCOUNTER → 2023-10-18 09:30 | Outpatient (BNV) | payer OTHER, SELFPAY | PROVIDERS: PCP Physician Assistant; Visit Provider Radiology Diagnostic Radiology | DX: Z12.31 Encounter for screening mammogram for malignant neoplasm of breast (principal) | CPT/HCPCS: 77063; 77067 ==

== ENCOUNTER 2024-05-11 14:34 | Outpatient (AMB) | payer OTHER, SELFPAY ==
[2024-05-11 14:46] VITALS: BP 122/84; PULSE 80; O2SAT 98; BMI 21.7
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
== END 2024-05-11 15:25 | disposition home or self-care (01) ==
PROVIDERS: PCP Physician Assistant; Visit Provider Physician Assistant
DX: Z00.00 Encounter for general adult medical examination without abnormal findings (principal); F41.1 Generalized anxiety disorder; F33.0 Major depressive disorder, recurrent, mild; M79.671 Pain in right foot; Z12.11 Encounter for screening for malignant neoplasm of colon; Z23 Encounter for immunization

== ENCOUNTER → 2024-05-11 14:34 | Outpatient (BNVA) | payer OTHER, SELFPAY | PROVIDERS: PCP Physician Assistant; Visit Provider Physician Assistant | DX: Z00.00 Encounter for general adult medical examination without abnormal findings (principal); F41.1 Generalized anxiety disorder; F33.0 Major depressive disorder, recurrent, mild; Z79.899 Other long term (current) drug therapy; Z28.21 Immunization not carried out because of patient refusal | CPT/HCPCS: 90471; 96127; 99396 ==

== ENCOUNTER 2024-11-20 11:57 | Outpatient (REF) | payer OTHER, SELFPAY | END 2024-11-20 11:58 | disposition home or self-care (01) | LOC: HO.MAMMO 11:57 | PROVIDERS: PCP Physician Assistant; Visit Provider Physician Assistant | DX: Z12.31 Encounter for screening mammogram for malignant neoplasm of breast (principal) | CPT/HCPCS: 77063; 77067 ==

== ENCOUNTER → 2024-11-20 12:15 | Outpatient (BNV) | payer OTHER, SELFPAY | PROVIDERS: PCP Physician Assistant; Visit Provider Internal Medicine | DX: Z12.31 Encounter for screening mammogram for malignant neoplasm of breast (principal) | CPT/HCPCS: 77063; 77067 ==

== ENCOUNTER 2025-06-04 10:11 | Outpatient (AMB) | payer OTHER, SELFPAY ==
--- OUTSIDE RECORDS SUMMARY | 2013-12-03 19:00 | XMS_ITS | Continuity of Care Document ---
Author Organization [facility] Practice Address [address] [place] [id number] Care Team Providers Care Cross Roller Name Role Phone Dick FRANCE, Jd Unavailable Unavailable Advance Directives Directive Yes / No Effective Date File Name No Information Encounters Encounter Description Practice Location Reason(s) For Visit Diagnoses Date Provider Providers Copied on Encounter [facility], [address] [place] [address] [address], [place], [id number], [place] [address] No Information Dick Miles. [address] [place], [place], [id number], [place]. tel:[phone] Family History Family Member Type Diagnosis Age At Onset No Information Payers Payer name Insurance type Covered green party ID Authoriza tion(s) No Information Social History Type Description Quantity Date Captured Comments Sex Female Smoking Status No Information Chief Complaint And Reason For Visit No Information Reason For Referral Reason For Referral No Information History Of Present Illness Encounter Date Complaint History Of Prese nt Illness No Information Functional Status Date Functional Assessmen t No Information Instructions Date Instruction Additional Infor mation No Information Assessments Type Assessment Date No Information Patient Care Teams Name Effective Dates (start - stop) Status Members No Information
--- NOTE | 2025-06-04 10:28 | MHC.PC.OV ---
Vital Signs 06/04/25 10:32 Height 5 ft 7 in Weight 143 lb 6 oz BMI 22.5 BP 116/62 Blood Pressure Location Lt brachial Position Sitting Pulse 81 Pulse Source Pulse Oximeter Temp 97.3 F Temp Source Temporal Artery Scan Pulse Oximetry (%) 98 Oxygen Delivery Method Room Air Intake Visit Reasons: annual exam Intake Note: Patient is here today for a physical. Director Script Required: No Sound Effects Person: Not Required per policy Accompanied by: Self / Same As Patient Allergies No Known Allergies Allergy (Verified 06/04/25 10:54) Medication List - Last Reconciled 06/04/25 by Agapito Mar PA-C bupropion HCl SR (Wellbutrin SR) 150 mg PO DAILY diazepam 5 mg PO BEDTIME 15 days valacyclovir (Valtrex) 1,000 mg PO BID PRN 7 days Tobacco use date assessed: 06/04/25 Dental Screening Dental Screen Date: 06/04/25 Did you have a dental visit in the last 12 months?: Yes Did you have a dental problem in the last 6 months where you did not have access to dental care?: No Was dental information given to patient?: Patient has dentist HPI annual exam HPI Details Patient is a 44-year-old female here today for routine annual physical.? Patient has a past medical history significant for generalized anxiety disorder. ..Generalized anxiety disorder and MDD:? She has started Wellbutrin 150 mg with significant improvement in her anxiety and depression. She reports over the last month or so her depression and anxiety have reoccurred and she has been drinking a bit more alcohol as of late. She attributes this to personal issues and changes the weather.. Vaccines:? Up-to-date with tetanus, Considering COVID Vaccine. Declines flu vaccine [place] [employer] Guide:? She has had abnormal Paps with atypical cells and a LEEP procedure was recently recommended, she is concerned about doing the procedure as she does not find any benefit. She would like a 2nd opinion from a new clerk of superior court to discuss further options .. Mammo: Mammogram done in October of 2024 BI-RADS 1 Colorectal cancer screening: Patient willing to do colonoscopy [facility] Medical History Anxiety Surgical History History of mandibular surgery Family History (Updated 06/04/25 @ 10:59 by Agapito Mar PA-C) Maternal Grandmother Colon cancer Social History (Updated 06/04/25 @ 11:00 by Agapito Mar PA-C) Housing: Apartment Alcohol intake: current Alcohol intake frequency: a few times a week Alcohol type: beer Patient Tobacco Use Status: Former Tobacco user e-Cigarette/Vaping Use: Never Used Second Hand Smoke Exposure: Yes Substance Use Type: Marijuana service: No Current occupational status: employed 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 1. Little interest or pleasure in doing things: several days 2. Feeling down, depressed, or hopeless: several days 3. Trouble falling or staying asleep, or sleeping too much: several days 4. Feeling tired or having little energy: several days 5. Poor appetite or overeating: not at all 6. Feeling bad about yourself - or that you are a failure or have let yourself or your family down: not at all 7. Trouble concentrating on things, such as reading the newspaper or watching television: not at all 8. Moving or speaking so slowly that other people could have noticed. Or the opposite - being so fidgety or restless that you have been moving around a lot more than usual: not at all 9. Thoughts that you would be better off or of hurting yourself in some way: not at all Total score: 4 Depression Screening Interpretation: Positive Depression Screening Follow-up: Existing condition Depression Screening Done: Yes 15966 - PHQ-9 Billing: Yes Source: Developed by Drs. Jhonny Meyer, Eleanor Mcgarry, Pavel Cat and colleagues, with an educational keri from [employer]. Thrive Questionnaire Date Thrive assessed: 05/28/25 I am a: Patient What is your living situation today?: I have a steady place to live Within the past 12 months, did the food you bought not last and you didn't have the money to get more?: Never true Within the past 12 months, did you worry whether your food would run out before you got money to buy more?: Never true Do you have trouble paying for medicines?: No Do you have trouble getting transportation to medical appointments?: No Do you have trouble paying your heating and electricity bill?: No Do you have trouble taking care of your child, family member or friend?: No Do you have trouble with day-to-day activities such as bathing, preparing meals, shopping, managing finances, etc.?: No Are you currently unemployed and looking for a job?: No Are you interested in more education?: No Please select the resources that you would like help with: None Currently or been in a relationship where the following occur: No concerns reported THRIVE Score: 0 AUDIT C Alcohol Use Questionnaire (AUDIT-C) 1. How often do you have a drink containing alcohol?: 2-4 times a month 2. How many drinks containing alcohol do you have on a typical day when you are drinking?: 1 or 2 3. How often do you have six or more drinks on one occasion?: Less than monthly Total Score: 3 RAYMOND-7 AMB Questionnaire RAYMOND-7 Date RAYMOND - 7 assessed: 05/11/24 Feeling nervous, anxious, or on edge: 1 = Several days Not being able to stop or control worryin = Several days Worrying too much about different things: 1 = Several days Trouble relaxin = Several days Being so restless that it is hard to sit still: 0 = Not at all Becoming easily annoyed or irritable: 0 = Not at all Feeling afraid as if something awful might happen: 0 = Not at all Total RAYMOND-7 score (0-4 normal; 5-9 mild; 10-14 moderate; 15-21 severe): 4 Source: Developed by Drs. Jhonny Meyer, Eleanor Mcgarry, Pavel Cat and colleagues, with an educational keri from [employer]. RAYMOND-7 Assessment Billing RAYMOND-7 Assessment Tool: RAYMOND-7 Assessment 73952 Review of Systems Const Denies body aches, Denies chills, Denies excessive sweating, Denies fatigue, Denies fever(s) and Denies headache(s) Eyes Denies blurry vision ENT Denies dysphagia, Denies vertigo, Denies dizziness, Denies headache(s), Denies hearing loss and Denies tinnitus Card Denies chest pain, Denies chest pain with activity, Denies syncope, Denies irregular heart rhythm and Denies dyspnea Resp Denies chest congestion, Denies cough, Denies hemoptysis, Denies dyspnea and Denies wheezing GI Denies abdominal pain, Denies melena, Denies hematochezia, Denies coffee ground emesis, Denies dysphagia, Denies diarrhea, Denies nausea and Denies vomiting Denies urinary frequency, Denies dysuria, Denies urinary hesitancy and Denies urinary urgency Musc Denies arthralgias, Denies limited range of motion, Denies muscle cramps and Denies muscle weakness Skin/Breast Denies rash and Denies skin ulcer Neuro Denies Abnormal speech present, Denies confusion, Denies vertigo, Denies dizziness, Denies syncope, Denies headache(s), Denies memory loss and Denies seizure-like activity Psych Denies anxiety, Denies confusion, Denies depression, Denies memory loss, Denies panic attacks and Denies paranoia Endo Denies excessive sweating, Denies fatigue, Denies flushing, Denies polydipsia and Denies polyuria Aller/Immun Denies wheezing Physical exam (Primary Care) Vital Signs: Last Vital Signs Temp 97.3 F 06/04/25 10:32 Pulse 81 06/04/25 10:32 BP 116/62 06/04/25 10:32 Pulse Ox 98 06/04/25 10:32 Oxygen Delivery Method Room Air 06/04/25 10:32 BMI result Body Mass Index 22.5 Tobacco/Smoking Status: Tobacco use Status Tobacco use date assessed 06/04/25 06/04/25 10:37 Patient Tobacco Use Status Former Tobacco user 06/04/25 11:00 e-Cigarette/Vaping Use Never Used 06/04/25 11:00 PHQ-9: PHQ-9 Score PHQ-9: Total score 4 06/04/25 10:56 Depression Screening Interpretation: Positive Depression Screening Follow-up: Existing condition Thrive Assessment: Date of Thrive Assessment Date Thrive assessed 05/28/25 06/04/25 10:30 Currently or been in a relationship where the following occur: No concerns reported Const General: cooperative, comfortable, no acute distress, alert and awake; No confusion Orientation/consciousness: oriented to person, oriented to place, patient oriented x3 and No confusion HENMT Head: Yes normocephalic Ears: external ears normal and TM's normal bilaterally Face and sinus: No sinus tenderness Mouth: Normal oral and palatal mucosa present and tongue normal Teeth and gingiva: dentition normal and gingiva normal Throat: Yes posterior oropharynx normal, Yes tonsils normal and Yes uvula midline Eyes Conjunctivae: conjunctivae normal Sclerae: sclerae normal Pupils: Equal, round and reactive pupils present EOM: EOMs intact bilaterally Direct Ophthalmoscopy: No no photophobia Neck Neck: Yes no lymphadenopathy, No tender and Yes no JVD Thyroid: Thyroid normal Carotids: no bruits Chest Chest palpation & inspection: no tenderness Resp Effort & Inspection: normal respiratory effort, no audible wheezes, not labored and no stridor Auscultation: no crackles, no rales, no rhonchi and no wheezes Cardio Jugular venous distension: no JVD Rate: regular rate, not bradycardic and not tachycardic Rhythm: regular rhythm Bruits: no carotid bruits Peripheral pulses: Peripheral pulses 2+ throughout GI Inspection: Yes normal to inspection, No abdominal wall ecchymosis and No visible herniation Palpation (GI): Soft to palpation, nontender, no guarding, not rigid and No hepatosplenomegaly present Auscultation: normoactive bowel sounds General: Yes no CVA tenderness Back/Spine/Pelvis Back: no CVA tenderness and No back tenderness Cervical Spine: cervical ROM normal Thoracic/Lumbar Spine: thoracic and lumbar spine normal to inspection, straight leg raise negative bilaterally, No thoraco-lumbar ROM limited and No lumbar spinal tenderness Skin Lesions: no lesions Rashes: no rashes Wounds: no wounds Neuro General: oriented to person, oriented to place, patient oriented x3, CN's II-XI intact bilaterally and No confusion Cranial nerves: Yes Equal, round and reactive pupils present and Yes Normal accommodation reflex present Cognition (Neuro): normal cognition Speech: No Abnormal speech present Gait exam (Neuro): Normal gait present Motor exam (neuro): 5/5 motor strength present throughout Extrem Right upper extremity: full ROM; no cyanosis Left upper extremity: full ROM; no cyanosis Right lower extremity: no edema Left lower extremity: no edema Psych Appearance: grossly normal Mental Status: mental status grossly normal Affect: normal affect Attitude: cooperative Thought process: Normal thought process present Coding Level of Care Code Est Pt Prev Care 40-64y(89642) Diagnoses Annual physical exam Z00.00 RAYMOND (generalized anxiety disorder) F41.1 MDD (major depressive disorder), recurrent episode, mild F33.0 Colon cancer screening Z12.11 MIS I (cervical intraepithelial neoplasia I) N87.0 Additional Codes PHQ-9 - 71745 - PHQ-9 Billing: Yes ([id number]) RAYMOND-7 Assessment Billing - RAYMOND-7 Assessment Tool: RAYMOND-7 Assessment 05012 ([id number]) Assessment & Plan Assessment & Plan (1) Annual physical exam: Code(s): Z00.00 - Encounter for general adult medical examination without abnormal findings Category: Medical Plan: As per HPI (2) RAYMOND (generalized anxiety disorder): Code(s): F41.1 - Generalized anxiety disorder Category: Medical Plan: Patient reports her anxiety is a bit elevated as of late to which he attributes to multiple things. She continues on Wellbutrin which has been (3) MDD (major depressive disorder), recurrent episode, mild: Code(s): F33.0 - Major depressive disorder, recurrent, mild Category: Medical Plan: As above patient's PHQ-9 score positive for mild depression which has been existing condition for her. Has been using Wellbutrin on a daily basis with good effect. (4) Colon cancer screening: Code(s): Z12.11 - Encounter for screening for malignant neoplasm of colon Category: Medical Plan: Patient willing to do colonoscopy (5) MIS I (cervical intraepithelial neoplasia I): Code(s): N87.0 - Mild cervical dysplasia Category: Medical Plan: Patient is interested in his 2nd opinion from a clerk of superior court specialist about atypical cells on her cervix. She was recommended to have LEEP procedure though is concerned on the efficacy of doing this again. Orders: Orders Vitamin D 25-OH Total 06/04/25 F33.0 - Major depressive disorder, recurrent, mild Comprehensive [place]. Panel Fast 06/04/25 Z13.1 - Encounter for screening for diabetes mellitus Complete Blood Count no Diff 06/04/25 Z13.1 - Encounter for screening for diabetes mellitus Referrals Gastroenterology Referral Z12.11 - Encounter for screening for malignant neoplasm of colon PUBLICATIONS DISTRIBUTION CLERK Referral N87.0 - Mild cervical dysplasia Medications: Refilled valacyclovir (Valtrex) 1,000 mg PO BID PRN 14 tabs 1RF outbreak 7 days B00.9 - Herpesviral infection, unspecified
[2025-06-04 10:32] VITALS: BP 116/62; PULSE 81; TEMP 36.3; O2SAT 98; BMI 22.5
== END 2025-06-04 11:17 | disposition home or self-care (01) ==
LOC: HO.HMCH 10:12
PROVIDERS: PCP Physician Assistant; Visit Provider Physician Assistant
DX: Z00.00 Encounter for general adult medical examination without abnormal findings (principal); F41.1 Generalized anxiety disorder; F33.0 Major depressive disorder, recurrent, mild; Z12.11 Encounter for screening for malignant neoplasm of colon; N87.0 Mild cervical dysplasia

== ENCOUNTER → 2025-06-04 10:11 | Outpatient (BNVA) | payer OTHER, SELFPAY | PROVIDERS: PCP Physician Assistant; Visit Provider Physician Assistant | DX: Z00.00 Encounter for general adult medical examination without abnormal findings (principal); F41.1 Generalized anxiety disorder; F33.0 Major depressive disorder, recurrent, mild; N87.0 Mild cervical dysplasia; B00.9 Herpesviral infection, unspecified | CPT/HCPCS: 96127; 99396 ==